=== PATIENT | male | born 1965 | race Caucasian/White ===

== ENCOUNTER 2017-08-28 12:02 | Emergency (ER) | payer OTHER ==
[~2017-08-28] VITALS: Ht 182.9 cm; Wt 57.2 kg
[~2017-08-28 12:02] MED LIST: HUMALOG MIX 50/53 M1; HUMULIN 70/30 PE3 ML; LEVOXYL137 MCG; LYRICA100 MG; OMEPRAZOLE; OXYCONTIN40 MG
== END 2017-08-28 14:56 | disposition home or self-care (01) ==
LOC: ER 12:02
DX: K21.9 Gastro-esophageal reflux disease without esophagitis (principal); K29.60 Other gastritis without bleeding; R07.89 Other chest pain; M54.89 Other dorsalgia